=== PATIENT | male | born 1955 | race Caucasian/White ===

== ENCOUNTER 2022-04-09 06:48 | Day surgery (SDC) | payer MEDICARE ==
[2022-04-07 12:56] LABS: CREATININE 1.1 mg/dL (0.5-1.5)
[2022-04-07 12:57] LABS: BASOPHILS % (AUTO) 0.5 % (0.0-5.0); EOSINOPHILS % (AUTO) 4.8 % (0.0-8.0); HEMATOCRIT 43.4 % (42-54); LYMPHOCYTES % (AUTO) 20.7 % (21.0-51.0); MEAN CORPUSCULAR HEMOGLOBIN 31.4 pg (27.0-33.0); MEAN CORPUSCULAR HGB CONC 33.6 g/dL (32.0-36.0); MEAN CORPUSCULAR VOLUME 93.3 fL (79-99); MONOCYTES % (AUTO) 8.6 % (3.0-13.0); NEUTROPHILS % (AUTO) 65.1 % (40.0-77.0); PLATELET COUNT (AUTO) 225 K/uL (130-400); RED BLOOD CELL COUNT(AUTO) 4.65 MIL/uL (4.50-6.20); RED CELL DISTRIBUTION WIDTH 12.4 % (11.0-15.5); WHITE BLOOD COUNT (AUTO) 6.2 K/uL (4.8-10.8)
[2022-04-08 10:08] VITALS: BP 121/68
[~2022-04-09] VITALS: Ht 180.3 cm; Wt 100.2 kg
[2022-04-09] VITALS (17 sets, daily range): BP systolic 106–129; BP diastolic 53–74
[~2022-04-09 06:48] MED LIST: ALLO100T PO; FINA5TAB41 PO; IBUP-2784 PO; LISI20TA24 PO; METO-391 PO; SIMV40TA59 PO; TAMS-1 PO
[2022-04-09] MEDS: CEFTRIAXONE 1G VIAL IVP SCH ×2 (08:00→10:45)
[2022-04-09] MEDS ORDERED: LACTATED RINGERS 1000ML 1,000 ML IV ONE ×2 (08:02→10:08)
[2022-04-09] MEDS ORDERED: METOCLOPRAMIDE 10 MG/2 ML VIAL ONE (09:30)
[2022-04-09] MEDS ORDERED: LIDOCAINE HCL-MPF 2% 5ML VIAL ONE (09:33)
[2022-04-09] MEDS ORDERED: PROPOFOL 10 MG/ML 20ML VIAL IV ONE (09:36)
[2022-04-09] MEDS ORDERED: MIDAZOLAM HCL 1 MG/ML 2ML VIAL ONE (09:36)
[2022-04-09] MEDS ORDERED: FENTANYL CITRATE PF 50 MCG/1 ML 2ML VIAL ONE (09:44)
[2022-04-09] MEDS ORDERED: PHENYLEPHRINE HCL 10 MG/ML 1ML VIAL IV ONE (09:48)
[2022-04-09] MEDS ORDERED: EPHEDRINE SULFATE 50 MG/ML AMPULE ONE (09:49)
[2022-04-09] MEDS ORDERED: OPIUM/BELLADONNA ALKALOIDS 1 EACH SUPP.RECT RC ONE (10:08)
[2022-04-09] MEDS ORDERED: DEXAMETHASONE SOD PHOSPHATE 10MG/ML 1ML VIAL ONE (10:31)
[2022-04-09] MEDS ORDERED: ONDANSETRON 4MG INJ ONE (10:31)
[2022-04-09] MEDS ORDERED: MEPERIDINE-PF 25 MG/ML SYG ONE (11:14)
[2022-04-09] MEDS ORDERED: PHENAZOPYRIDINE HCL 200 MG TABLET ONE (12:02)
== END 2022-04-09 13:17 | disposition home or self-care (01) ==
LOC: DAH 06:48
PROVIDERS: ATTEND Urology
DX: N40.1 Benign prostatic hyperplasia with lower urinary tract symptoms (principal); R39.14 Feeling of incomplete bladder emptying; R35.0 Frequency of micturition; R35.1 Nocturia; G47.30 Sleep apnea, unspecified; I10 Essential (primary) hypertension; E78.5 Hyperlipidemia, unspecified; I49.1 Atrial premature depolarization; I45.10 Unspecified right bundle-branch block; M10.9 Gout, unspecified; Z88.6 Allergy status to analgesic agent; Z98.890 Other specified postprocedural states; Z90.49 Acquired absence of other specified parts of digestive tract
CPT/HCPCS: 36415; 52648; 80048; 85025; 87635; 93005; A4213; A4215; A4221; A4222; A4223; A4340; A4354; A4358; A4510; A4600; A4663; A5113; A6260; C9803; J0696; J1100; J2175; J2250; J2370; J2405; J2704; J2765; J3010; J3490 ×2; J7030; J7120 ×3